=== PATIENT | female | born 2000 | race American Indian/Alaskan Native ===

== ENCOUNTER 2022-04-25 22:30 | Outpatient (CLI) | payer MEDICAID ==
[2022-04-25] MEDS ORDERED: LACTATED RINGERS 1,000 ML IV ONE (23:26)
[2022-04-25] MEDS ORDERED: LACTATED RINGERS 1,000 ML ONE (23:26)
[2022-04-26 01:46] VITALS: BP 124/68
[2022-04-26] MEDS ORDERED: MORPHINE 2 MG/1 ML INJ IV ONE (02:15)
[2022-04-26] MEDS ORDERED: LACTATED RINGERS 1,000 ML IV ONE (02:18)
--- NOTE | 2022-04-26 04:45 | Ultrasound Report ---
ULTRASOUND OBSTETRIC LIMITED ULTRASOUND BIOPHYSICAL PROFILE INDICATION / CLINICAL INFORMATION: REBA,PLACENTA ABRUPTION. - Clinical Gestational Age (GA) in weeks, days: 38 weeks 2 days TECHNIQUE: Transabdominal. COMPARISON: None available. FINDINGS: BREATHING MOVEMENT = 2 GROSS BODY MOVEMENT = 2 TONE = 2 QUALITATIVE AMNIOTIC FLUID VOLUME = 2 TOTAL BIOPHYSICAL SCORE = 8/8 HEART RATE (beats per minute): 139 AMNIOTIC FLUID INDEX (cm) = 8.3 cm (normal = 7-24 cm) PRESENTATION: Cephalic. ADDITIONAL FINDINGS: None. IMPRESSION: 1. Biophysical Score = 8/8 2. Single living intrauterine gestation without evidence for placental abruption or other acute sonog raphic process. Signer Name: Keny Godfrey MD Signed: 04/26/2022 4:41 AM Workstation Name: [facility]
== END 2022-04-26 05:45 | disposition home or self-care (01) ==
LOC: TRG 22:30 → APU 22:31 → TRG 04-26 05:45
PROVIDERS: ATTEND Obstetrics & Gynecology
DX: O26.853 Spotting complicating pregnancy, third trimester (principal); O62.9 Abnormality of forces of labor, unspecified; O99.513 Diseases of the respiratory system complicating pregnancy, third trimester; J45.909 Unspecified asthma, uncomplicated; Z3A.38 38 weeks gestation of pregnancy
CPT/HCPCS: 36415; 59025; 76815; 76819; 84112; 96361; 96374; J2270; J7120; 96360

== ENCOUNTER 2022-04-27 11:13 | Inpatient (IN) | payer MEDICAID ==
[2022-04-27] MEDS ORDERED: LOPERAMIDE 2 MG CAP PO PRN (12:23)
[2022-04-27] MEDS ORDERED: TERBUTALINE 1 MG/1 ML INJ SUB-Q PRN (12:23)
[2022-04-27] MEDS ORDERED: miSOPROStol 200 MCG TAB PR PRN (12:23)
[2022-04-27] MEDS ORDERED: LIDOCAINE (2%) 20 MG/1 ML VIAL 20 ML MDV INFILTRATI NR (12:23)
[2022-04-27] MEDS ORDERED: BUTORPHANOL 2 MG/1 ML INJ IV PRN ×2 (12:30→13:00)
[2022-04-27] MEDS ORDERED: METHYLERGONOVINE MALEATE 0.2 MG/ML VIAL IM PRN (13:00)
[2022-04-27] MEDS ORDERED: ACETAMINOPHEN 325 MG TAB PO PRN (13:00)
[2022-04-27] MEDS ORDERED: CARBOPROST TROMETHAMINE 250 MCG/1 ML INJ IM PRN (13:00)
[2022-04-27] MEDS ORDERED: OXYTOCIN DRIP 30 UNITS/500 ML BAG IV SCH ×2 (13:00)
[2022-04-27] MEDS ORDERED: ePHEDrine SULFATE 50 MG/1 ML INJ IV PRN ×2 (13:00→15:00)
[2022-04-27] MEDS ORDERED: OXYTOCIN 10 UNIT/1 ML INJ IM PRN (13:00)
[2022-04-27] MEDS ORDERED: ONDANSETRON 4 MG/2 ML INJ IV PRN (13:00)
[2022-04-27] MEDS ORDERED: LACTATED RINGERS 1,000 ML IV SCH (13:00)
[2022-04-27] MEDS ORDERED: fentaNYL 100 MCG/2 ML INJ IV PRN (13:00)
[2022-04-27] MEDS ORDERED: NalbUPHINE 10 MG/1 ML INJ IV PRN (13:00)
[2022-04-27 13:30] LABS: Hematocrit 37.9 % (30.3-42.9); Hemoglobin 12.3 gm/dl (10.1-14.3); Mean Corpuscular HGB Conc 32 % (30-34); Mean Corpuscular Volume 80 fl (79-97); Platelet Count 218 K/mm3 (140-440); Red Blood Count 4.76 M/mm3 (3.65-5.03); Red Cell Distribution Width 13.6 % (13.2-15.2)
--- NOTE | 2022-04-27 14:52 | History and Physical Report ---
History of Present Illness Date of examination: 04/27/22 Date of admission: 04/27/22 12:23 Chief complaint: I'm in pain History of present illness: Pt is a 21 year old who presents with complaint of contractions at 38-3/7 weeks with a EDC of 05/08/2022. course complicated by transfer of care in early third trimester to my practice. Her labs are within normal limits her GBS is negative. Past History Past Medical History: no pertinent history Past Surgical History: no surgical history PLAN EXAMINER History: chlamydia Social history: single - Obstetrical History Expected Date of Delivery: 05/08/22 Actual Gestation: 38 Week(s) 3 Day(s) : 1 Medications and Allergies Allergies Allergy/AdvReac Type Severity Reaction Status Date / Time No Known Allergies Allergy Verified 04/25/22 23:29 Active Meds: Active Medications Acetaminophen (Acetaminophen 325 Mg Tab) 650 mg PO Q4H PRN PRN Reason: Pain, Mild (1-3) Butorphanol Tartrate (Butorphanol 2 Mg/1 Ml Inj) 1 mg IV Q2H PRN PRN Reason: Pain, Moderate(4-6) LABOR PAIN Butorphanol Tartrate (Butorphanol 2 Mg/1 Ml Inj) 2 mg IV Q2H PRN PRN Reason: Pain , Severe (7-10) Carboprost Tromethamine (Carboprost Tromethamine 250 Mcg/1 Ml Inj) 250 mcg IM ONCE PRN PRN Reason: Uterine Bleeding Ephedrine Sulfate (Ephedrine Sulfate 50 Mg/1 Ml Inj) 10 mg IV Q2M PRN PRN Reason: Hypotension Ephedrine Sulfate (Ephedrine Sulfate 50 Mg/1 Ml Inj) 10 mg IV Q2M PRN PRN Reason: Hypotension Fentanyl (Fentanyl 100 Mcg/2 Ml Inj) 100 mcg IV Q2H PRN PRN Reason: Pain,Severe (7-10) LABOR PAIN Oxytocin/Sodium Chloride (Pitocin/Ns 30 Unit/500ml) 30 units in 500 mls @ 2 mls/hr IV TITR HILDA; Protocol Lactated Ringer's (Lactated Ringers) 1,000 mls @ 125 mls/hr IV DIRECT HILDA Oxytocin/Sodium Chloride (Pitocin/Ns 30 Unit/500ml) 30 units in 500 mls @ 40 mls/hr IV TITR HILDA; Protocol Fentanyl/Bupivacaine/Sodium Chlor (Fentanyl-Bupiv 2 Mcg/Ml-0.125%) 200 mcg in 100 mls @ 12 mls/hr EPIDURAL TITR HILDA; Protocol Lidocaine (Lidocaine (2%) 20 Mg/1 Ml Vial 20 Ml Mdv) 20 ml INFILTRATI ONCE NR Stop: 04/27/22 20:00 Loperamide HCl (Loperamide 2 Mg Cap) 2 mg PO ONCE PRN PRN Reason: give with Hemabate Methylergonovine Maleate (Methylergonovine Maleate 0.2 Mg/Ml Vial) 0.2 mg IM ONCE PRN PRN Reason: Uterine Bleeding Mineral Oil (Mineral Oil 30 Ml Oral Liqd) 30 ml PO QHS PRN PRN Reason: Constipation Misoprostol (Misoprostol 200 Mcg Tab) 800 mcg ME ONCE PRN PRN Reason: Uterine Bleeding Nalbuphine HCl (Nalbuphine 10 Mg/1 Ml Inj) 10 mg IV Q2H PRN PRN Reason: Pain, Moderate (4-6) Naloxone HCl (Naloxone 0.4 Mg/1 Ml Inj) 0.2 mg IV Q5MIN PRN PRN Reason: Respiratory sedation Ondansetron HCl (Ondansetron 4 Mg/2 Ml Inj) 4 mg IV Q8H PRN PRN Reason: Nausea And Vomiting Oxytocin (Oxytocin 10 Unit/1 Ml Inj) 10 unit IM ONCE PRN PRN Reason: Uterine Bleeding Terbutaline Sulfate (Terbutaline 1 Mg/1 Ml Inj) 0.25 mg SUB-Q ONCE PRN PRN Reason: Hyperstimulation/Hypertonicity Review of Systems All systems: negative Constitutional: fatigue, malaise Genitourinary: contractions Rectal Exam: deferred - Vital Signs Vital signs: Vital Signs Pulse Pulse Ox 103 H 98 04/27/22 11:48 04/27/22 11:48 Temp Pulse Resp BP Pulse Ox 98.9 F 108 H 18 131/76 98 04/27/22 12:13 04/27/22 14:35 04/27/22 12:13 04/27/22 11:52 04/27/22 14:35 - Physical Exam Breasts: Cardiovascular: Regular rate, Normal S1, Normal S2 Lungs: Positive: Clear to auscultation, Normal air movement Abdomen: Positive: normal appearance, soft, normal bowel sounds. Negative: distention, tenderness Genitourinary (Female): Positive: normal external genitalia, normal perenium Vulva: both: normal Vagina: Positive: normal moisture. Negative: discharge Cervix: Negative: lesion, discharge Uterus: Positive: normal size, normal contour Adnexa: both: normal Anus/Rectum: Positive: normal perianal skin, heme negative. Negative: rectal mass, hemorrhoids Extremities: Deep Tendon Reflex Grade: Normal +2 - Obstetrical FHR: auscultation normal Cervical Dilatation: 6 Cervical Effacement Percentage: 90 station: 1 Uterine Contraction Pattern: Regular Uterine Tone Measurement Phase: Contraction Uterine Contraction Intensity: Moderate Results Result Diagrams: 04/27/22 12:30 Abnormal lab results 04/27/22 Range/Units 12:30 WBC 11.9 H (4.5-11.0) K/mm3 MCH 26 L (28-32) pg All other labs normal. Assessment and Plan IUP at 38-3/7 weeks in active labor. Admit for same. Patient had epidural when desired. She is GBS negative. AROM when able. Anticipate
[2022-04-27] MEDS ORDERED: BUPIVACAINE/PF (0.25%) 2.5 MG/ML 10 ML VIAL INFILTRATI ONE (14:59)
[2022-04-27] MEDS ORDERED: NALOXONE 0.4 MG/1 ML INJ IV PRN (15:00)
--- NOTE | 2022-04-27 15:19 | Anesthesia Consultation ---
Anesthesia Consult and Med Hx Date of service: 04/27/22 - Airway Anesthetic Teeth Evaluation: Good ROM Head & Neck: Adequate Mental/Hyoid Distance: Adequate Mallampati Class: Class III Intubation Access Assessment: Possibly Difficult - Pre-Operative Health Status ASA Pre-Surgery Classification: ASA2 Proposed Anesthetic Plan: Epidural - Pulmonary Hx Respiratory Symptoms: No - Cardiovascular System Hx Hypertension: No - Central Nervous System CVA: No - Endocrine Hx Renal Disease: No Hx Liver Disease: No Hx Insulin Dependent Diabetes: No Hx Non-Insulin Dependent Diabetes: No Hx Thyroid Disease: No - Other Systems Hx Obesity: Yes - Additional Comments Anesthesia Medical History Comments: Requesting epidural for labor pain. No prior epidurals. Late entry; examined prior to procedure.
--- NOTE | 2022-04-27 15:20 | Progress Note ---
Labor Epidural - Labor Epidural Start Time: 14:42 Stop Time: 14:55 Performed by:: BEVERLEY LENTZ Procedure: Patient requests epidural for labor pain. H&P and labs reviewed. Procedure explained, questions answered, consent obtained. Patient placed in sitting position with monitors applied. Timeout performed immediately before start of procedure. Prep/drape in usual sterile fashion. Skin anesthetized w/ 3 mL 1% lidocaine at L[2]-L[3]. 18-gauge [employer] epidural needle advanced to TIGRE with saline at [8] cm. No blood/CSF noted via epidural needle. Epidural catheter advanced to [15] cm. Negative aspiration for blood and CSF via catheter, negat wilmer response to test dose 3 ml 1.5% lidocaine w/ epi. Sterile dressing applied followed by tape reinforcement. Catheter dosed with 5cc bupivicaine 0.25%. Patient tolerated procedure well. No immediate complications noted.
[2022-04-27] MEDS: fentaNYL-BUPIV 2 MCG/ML-0.125% 200 MCG/100 ML BAG EPIDURAL SCH ×2 (15:40→22:50)
[2022-04-27] MEDS ORDERED: MINERAL OIL 30 ML ORAL LIQD ONE (16:09)
[2022-04-27] MEDS ORDERED: LIDOCAINE MPF (2%) 20 MG/1 ML VIAL 5 ML ONE (16:37)
[2022-04-27] MEDS ORDERED: MINERAL OIL 30 ML ORAL LIQD PO PRN (22:00)
--- NOTE | 2022-04-28 01:43 | Procedure Note ---
OB Delivery Note - Delivery Date of Delivery: 04/28/22 Surgeon: BENJY LEAL Estimated blood loss: 200cc - Vaginal Delivery presentation: vertex Delivery position: OA Intrapartum events: PROM->1hr before delivery Delivery induction: none Delivery augmentation: rupture of membranes Delivery monitor: external FHT, external uterine Route of delivery: Delivery placenta: spontaneous Delivery cord: 3 umbilical vessels Episiotomy: none Delivery laceration: 2nd degree Delivery repair: vicryl Anesthesia: epidural Delivery comments: Viable female delivered over intact perineum at 116 a.m. had spontaneous cry and was placed on maternal abdomen. Cord was clamped and cut when finished pulsating. Weight 7 pounds 0 ounces. Apgars 7/9. Placenta was delivered spontaneously and intact with three-vessel cord. Patient had a second-degree laceration that was repaired with 2-0 Vicryl. Excellent hemostasis. Patient tolerated procedure well. - Infant A at 1 minute: 7 at 5 minutes: 9 Gender: Female (7 pounds)
[2022-04-28] MEDS ORDERED: ACETAMINOPHEN 325 MG TAB PO PRN (05:49)
[2022-04-28] MEDS ORDERED: PROMETHAZINE 25 MG RECT SUPP PR PRN (05:49)
[2022-04-28] MEDS ORDERED: LANOLIN/ZINC/DIMETHICONE (LANSINOH) 7 GM TP PRN (05:49)
[2022-04-28] MEDS ORDERED: MAGNESIUM HYDROXIDE (MOM) ORAL LIQD UDC PO PRN (05:49)
[2022-04-28] MEDS ORDERED: diphenhydrAMINE 25 MG CAP PO PRN (05:49)
[2022-04-28] MEDS ORDERED: ONDANSETRON 4 MG/2 ML INJ IV PRN (05:49)
[2022-04-28] MEDS ORDERED: PROMETHAZINE 25 MG TAB PO PRN (05:49)
[2022-04-28] MEDS ORDERED: HYDROcodone/ACETAMINOPHEN 5-325 MG TAB PO PRN (05:49)
[2022-04-28] MEDS: IBUPROFEN 800 MG TAB PO SCH ×3 (07:01→20:34)
[2022-04-28] MEDS: WITCH HAZEL/ GLYCERIN PAD TP PRN (12:07)
[2022-04-28] MEDS: PRENATAL VIT27-FE FUMARATE-FOLIC ACID VIT TAB PO SCH (12:07)
[2022-04-28] MEDS: DOCUSATE SODIUM 100 MG CAP PO SCH ×2 (12:07→22:33)
[2022-04-28 15:54] LABS: Hematocrit 33.9 % (30.3-42.9); Hemoglobin 11.2 gm/dl (10.1-14.3)
--- NOTE | 2022-04-29 06:27 | Post Anesthesia Evaluation ---
- Post Anesthesia Evaluation Patient Participated: No Airway Patent: Yes Stable Respiratory Function: Yes Nausea/Vomiting: No Temp > 96.8F: Yes Pain Manageable: Yes Adequeate Hydration: Yes Anesthesia Complications: No Block Receding Appropriately: Yes Patient on Ventilator: No
--- NOTE | 2022-04-29 09:18 | Discharge Summary ---
Providers - Providers Date of Admission: 04/27/22 12:23 Date of discharge: 04/29/22 Attending physician: BENJY LEAL Primary care physician: BENJY LEAL Hospitalization Reason for admission: active labor Delivery: Episiotomy: none Laceration: 2nd degree Other procedures: none complications: none Discharge diagnosis: IUP at term delivered baby: female Hospital course: unremarkable Condition at discharge: Good Disposition: 01 HOME / SELF CARE / HOMELESS Plan - Discharge Medications Prescriptions: Ibuprofen [Motrin 800 MG tab] 800 mg PO Q6H #30 tablet - Provider Discharge Summary Activity: routine, no sex for 6 weeks, no heavy lifting 4 weeks, no strenuous exercise Diet: routine Instructions: routine Additional instructions: [] Smoking cessation referral if applicable(refer to patient education folder for contact #) [] Refer to [facility]'s [facility] Booklet Call your doctor immediately for: * Fever > 100.5 * Heavy vaginal bleeding ( >1 pad per hour) * Severe persistent headache * Shortness of breath * Reddened, hot, painful area to leg or breast * Drainage or odor from incision. * Keep incision clean and dry at all times and follow doctor's instructions regarding bathing/showering - Follow up plan Follow up: BENJY LEAL MD [Primary Care Provider] - 6 Weeks
[2022-04-29] MEDS: WITCH HAZEL/ GLYCERIN PAD TP PRN (11:53)
[2022-04-29] MEDS: DOCUSATE SODIUM 100 MG CAP PO SCH (11:55)
[2022-04-29] MEDS: IBUPROFEN 800 MG TAB PO SCH (11:55)
[2022-04-29] MEDS: PRENATAL VIT27-FE FUMARATE-FOLIC ACID VIT TAB PO SCH (11:55)
[2022-04-29 19:04] VITALS: BP 128/64
== END 2022-04-29 20:13 | disposition home or self-care (01) | DRG 775 ==
LOC: TRG 11:13 → LD 11:14 → TRG 12:23 → LD 12:23 → OB 04-28 03:35
PROVIDERS: ADMIT Obstetrics & Gynecology; ATTEND Obstetrics & Gynecology
PROC: 10E0XZZ Delivery of Products of Conception, External Approach (ICD-10-PCS; principal; 2022-04-28)
PROC: 0KQM0ZZ Repair Perineum Muscle, Open Approach (ICD-10-PCS; 2022-04-28)
PROC: 3E0R3BZ Introduction of Anesthetic Agent into Spinal Canal, Percutaneous Approach (ICD-10-PCS; 2022-04-28)
PROC: 00HU33Z Insertion of Infusion Device into Spinal Canal, Percutaneous Approach (ICD-10-PCS; 2022-04-28)
DX: O42.02 Full-term premature rupture of membranes, onset of labor within 24 hours of rupture (principal); Z37.0 Single live birth; Z3A.38 38 weeks gestation of pregnancy; Z20.822 Contact with and (suspected) exposure to COVID-19; O99.214 Obesity complicating childbirth; O70.1 Second degree perineal laceration during delivery
CPT/HCPCS: 36415; 85014; 85018; 85027; 86592; 86850; 86900; 86901; G0378; J3490; J2590; U0003